=== PATIENT | male | born 1990 | race African-American/Black ===

== ENCOUNTER 2023-05-13 09:46 | Emergency (ER) | payer MEDICAID ==
[~2023-05-13] VITALS: Ht 182.9 cm; Wt 91.0 kg
[2023-05-13 10:01] VITALS: O2SAT 98
[2023-05-13] MEDS ORDERED: IBUP-2029 MT (10:42)
[2023-05-13] MEDS ORDERED: T3 PO (10:42)
[2023-05-13] MEDS ORDERED: CEPH500C2 MT (10:42)
[2023-05-13] MEDS ORDERED: CEPHALEXIN 250MG CAPSULE PO ONE (10:45)
[2023-05-13] MEDS ORDERED: ACETAMINOPHEN WITH CODEINE 300/30MG TABLET PO ONE (10:45)
[2023-05-13 11:04] VITALS: BP 134/85; PULSE 80; RESP 16; TEMP 98.5
== END 2023-05-13 11:05 | disposition home or self-care (01) ==
LOC: ER 09:46
DX: L73.9 Follicular disorder, unspecified (principal)
CPT/HCPCS: 99283

== ENCOUNTER 2023-05-15 13:56 | Emergency (ER) | payer OTHER ==
[~2023-05-15] VITALS: Ht 188 cm; Wt 81.0 kg
[~2023-05-15 13:56] MED LIST: CEPH500C2 MT; IBUP-2029 MT; T3 PO
[2023-05-15 14:13] VITALS: O2SAT 98
[2023-05-15] MEDS ORDERED: HYDROCODONE/ACETAMINOPHEN 10/325MG TABLET PO ONE (16:45)
[2023-05-15] MEDS ORDERED: BACITRACIN ZINC OINT UDPKT TOP ONE (17:00)
[2023-05-15] MEDS ORDERED: LIDOCAINE HCL/PF 1% 10 MG/ML 5ML VIAL INFIL ONE ×2 (17:00→18:00)
[2023-05-15] MEDS ORDERED: CEPH500T MT (18:30)
[2023-05-15 19:01] VITALS: BP 121/75; PULSE 86; RESP 20; TEMP 97.7
== END 2023-05-15 19:09 | disposition home or self-care (01) ==
LOC: ER 13:56
DX: L02.31 Cutaneous abscess of buttock (principal)
CPT/HCPCS: 10060; 99283; J3490; Z7610 ×5

== ENCOUNTER 2023-05-17 11:24 | Emergency (ER) | payer OTHER ==
[~2023-05-17] VITALS: Ht 185.4 cm; Wt 80.7 kg
[~2023-05-17 11:24] MED LIST changes: +CEPH500T MT
[2023-05-17 11:31] VITALS: TEMP 98.5; O2SAT 97
[2023-05-17 12:15] VITALS: BP 123/79; PULSE 93; RESP 16
[2023-05-17] MEDS ORDERED: KETOROLAC 30MG/ML VIAL IM ONE (12:15)
[2023-05-17] MEDS ORDERED: LIDOCAINE HCL/EPINEPHRINE 1%-EPI 1:100,000 20 ML VIAL INFIL ONE (12:15)
[2023-05-17] MEDS ORDERED: BACITRACIN ZINC OINT UDPKT TOP ONE (12:15)
[2023-05-17] MEDS ORDERED: LIDOCAINE HCL/PF 1% 10 MG/ML 5ML VIAL INFIL ONE ×2 (12:30)
== END 2023-05-17 16:34 | disposition home or self-care (01) ==
LOC: ER 11:24
DX: K61.1 Rectal abscess (principal)
CPT/HCPCS: 10060; 99282; J1885; J3490 ×2

== ENCOUNTER 2023-05-19 10:58 | Emergency (ER) | payer SELFPAY ==
[~2023-05-19] VITALS: Ht 182.9 cm; Wt 81.0 kg
[2023-05-19 11:07] VITALS: O2SAT 99
[2023-05-19 11:35] VITALS: BP 134/75; PULSE 74; RESP 18; TEMP 98
== END 2023-05-19 12:47 | disposition home or self-care (01) ==
LOC: ER 10:58
DX: Z48.02 Encounter for removal of sutures (principal); Z79.899 Other long term (current) drug therapy
CPT/HCPCS: 99281

== ENCOUNTER 2024-10-31 16:49 | Emergency (ER) | payer OTHER ==
[~2024-10-31] VITALS: Ht 185.4 cm; Wt 82.1 kg
[2024-10-31 16:58] VITALS: TEMP 36.7; O2SAT 98
[2024-10-31] MEDS ORDERED: DICYCLOMINE 10 MG/5 ML ORAL SYR PO STA (17:43)
[2024-10-31] MEDS: ONDANSETRON 4MG ODT PO STA (17:43)
[2024-10-31] MEDS: MAGNESIUM/ALUMINUM HYDROXIDE/SIMETHICONE 30ML UDC PO STA (17:43)
[2024-10-31 18:28] LABS: CHLORIDE 105 mEq/L (98-107); POTASSIUM 4.6 mEq/L (3.5-5.1); SODIUM 141 mEq/L (136-145)
[2024-10-31 18:29] LABS: CARBON DIOXIDE 31 mEq/L (21-32)
[2024-10-31 18:33] LABS: CREATININE 1.4 mg/dL (0.6-1.3)
[2024-10-31 18:34] LABS: GLUCOSE 90 mg/dL (70-105); UREA NITROGEN BLOOD 13 mg/dL (9-23)
[2024-10-31 18:36] LABS: ALANINE AMINOTRANSFERASE 23 IU/L (10-49); ALBUMIN 4.1 g/dL (3.2-4.8); ASPARTATE AMINOTRANSFERASE 25 IU/L (<34); BILIRUBIN TOTAL 0.3 mg/dL (0.1-1.0); PROTEIN TOTAL 6.7 g/dL (6.0-8.3)
[2024-10-31 18:38] LABS: BILIRUBIN DIRECT < 0.1 mg/dL (<=3.0)
[2024-10-31] MEDS: DICYCLOMINE HCL 10MG CAPSULE PO NR (18:40)
[2024-10-31 18:43] LABS: BASOPHILS % 0.5 % (0.0-2.0); EOSINOPHILS % 1.2 % (0.0-5.0); HEMATOCRIT. 46.6 % (42.0-52.0); HEMOGLOBIN. 15.3 g/dL (14.0-18.0); LYMPHOCYTES % 27.7 % (20.0-50.0); MEAN CORPUSCULAR HEMOGLOBIN 29.6 pg (28.0-32.0); MEAN CORPUSCULAR HGB CONC 32.9 g/dL (31.0-37.0); MEAN CORPUSCULAR VOLUME 89.9 fL (80.0-94.0); MONOCYTES % 5.9 % (2.0-8.0); NEUTROPHILS % 64.7 % (40.0-76.0); PLATELET 222 x1000/uL (130-400); RED BLOOD CELL COUNT 5.19 mill/uL (4.7-6.1); RED CELL DISTRIBUTION WIDTH 13.3 % (11.6-14.6); WHITE BLOOD COUNT 8.2 x1000/uL (4.5-11.0)
[2024-10-31] MEDS ORDERED: FAMO-135 MT (20:54)
[2024-10-31 21:25] VITALS: BP 108/62; PULSE 65; RESP 16; O2SAT 100
== END 2024-10-31 21:31 | disposition home or self-care (01) ==
LOC: ER 16:49
DX: K29.70 Gastritis, unspecified, without bleeding (principal); N17.9 Acute kidney failure, unspecified; F12.90 Cannabis use, unspecified, uncomplicated
CPT/HCPCS: 99284; 76705; 80076; 80048; 83690; 85025; 36415; Q0162